=== PATIENT | female | born 1965 | race African-American/Black ===

== ENCOUNTER 2016-08-28 12:04 | Emergency (ER) | payer OTHER ==
[~2016-08-28] VITALS: Ht 172.7 cm; Wt 84.8 kg
[~2016-08-28 12:04] MED LIST: BACTRIM DS TAB1 EACH PO; LEVSIN0.125 M1 PO; METFORMIN HCL1000 M1 PO; PYRIDIUM200 M1 PO; ZOFRAN ODT4 M1 SL
--- NOTE | 2016-08-28 12:43 | ED CARDIAC/CP/PALPITATIONS ---
History of Present Illness General Chief Complaint: Upper Respiratory Sx/Fever Stated Complaint: URI Source: patient Exam Limitations: no limitations Vital Signs & Intake/Output Vital Signs & Intake/Output Vital Signs Date Time Temp Pulse Resp B/P Pulse O2 O2 Flow FiO2 Ox Delivery Rate 08/28 1429 98.9 57 20 157/89 99 Room Air 08/28 1353 98 Room Air ED Intake and Output 08/29 0000 08/28 1200 Intake Total 1000 Output Total Balance 1000 Intake, IV 1000 Patient 187 lb Weight Allergies Coded Allergies: No Known Allergies (08/28/16) Reconcile Medications Azithromycin 250 MG TABLET 1 DP PO AD SINUSITIS 2 the first day followed by 1 for days 2-5 Hyoscyamine (Levsin) 0.125 MG TABLET 1 TAB PO Q4 ABDOMINAL SPASMS Linagliptin (Tradjenta) 5 MG TABLET 1 TAB PO DAILY DIABETES (Reported) Metformin HCl 1,000 MG TABLET 1 TAB PO DAILY DIABETES (Reported) Ondansetron (Zofran Odt) 4 MG TAB.RAPDIS 1-2 TAB SL BID PRN NAUSEA Ondansetron (Zofran Odt) 4 MG TAB.RAPDIS 1 TAB SL TID PRN NAUSEA Triage Note: TRIAGE: PT TO ER C/C "I HAVE A DRY MOUTH. MY HEAD IS CLOGGED UP. I FEEL JITTERY AND I HAVE PAIN". ALSO STATES COUGHING UP THICK GREENISH MUCOUS. WHEN ASKED WHERE HER PAIN IS POINTS TO RLQ ABD AND SAYS "MY HEART" AND "MY WHOLE BODY". EKG ORDERED FROM TRIAGE. Triage Nurses Notes Reviewed? yes HPI: This patient is a 51-year-old female with a past medical history including diabetes who presented to the emergency department today for evaluation of multiple complaints. The patient reported that her symptoms began approximately 2 days ago with right lower abdominal pain. She reported that on Tuesday pain moved over to her left lower abdomen. She reported that the pain in her left lower abdomen is now gone, but she is still having 5 out of 10 pain in her right lower abdomen and has also been having worsening left-sided chest pain since 2 days ago. The patient reported that the chest pain gets up to a 7 out of 10 and is located under her left breast and sometimes radiates to her back. She reported that she has baseline pain and tingling in her hands and arms due to neuropathy from diabetes. The patient also reported that she has been having green nasal drainage at which she sometimes coughs up. The patient reported tactile fevers. She denied any chills, visual changes, jaw pain, headaches, difficulty breathing, vomiting, constipation, diarrhea, or any urinary symptoms. The patient did report mild associated nausea. She reported that she was seen here in the emergency department within the last year for similar chest pain. 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 They told her that her, "heart beats slowly and to take it easy." Past History Travel History Traveled to [place] past 21 day No Medical History Any Pertinent Medical History? 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 No Review of Systems Review of Systems Constitutional: Reports: see HPI. EENTM: Reports: see HPI. Respiratory: Reports: see HPI. Cardiovascular: Reports: see HPI. GI: Reports: see HPI. Genitourinary: Reports: no symptoms. Musculoskeletal: Reports: no symptoms. Skin: Reports: no symptoms. Neurological/Psychological: Reports: see HPI. All Other Systems: Reviewed and Negative Physical Exam Physical Exam Cardiovascular: regular rate/rhythm, normal peripheral pulses, NO MURMURS, RUBS, OR GALLOPS. nO jvd. nO CAROTID BRUITS Comments: Well-developed well-nourished person who appears anxious HEENT: Normal EENT exam, head normocephalic, moist mucous membranes PERRLA bilaterally Neck: Supple, no lymphadenopathy Back: Normal gait. Normal inspection Respiratory: Chest nontender. No respiratory distress. Speaking in full sentences. Lungs clear to auscultation bilaterally with no wheezes, rales, or rhonchi. No diminished breath sounds Abdomen: Soft and nondistended. Normoactive bowel sounds. Tympanic to percussion throughout all 4 quadrants. No tenderness to superficial or deep palpation. No McBurney's point tenderness. Negative Rovsing sign. Negative psoas sign. Negative Alonso sign. No rebound or guarding. No peritoneal signs. No organomegaly appreciated Extremity: No edema, no calf tenderness to palpation, normal and equal pulses. Neuro: Alert oriented x3, cranial nerves II through XII grossly intact. Skin: No appreciable rash on exposed skin, skin is warm and dry. Psych: Mood and affect is normal Core Measures ACS in differential dx? Yes Severe Sepsis Present: No Septic Shock Present: No Progress Differential Diagnosis: AMI, aortic dissection, atrial fibrillation, cholecystitis, CHF/pulm edema, costochondritis, hyperkalemia, hyperthyroid, hyperventilation, musculoskeletal pain, myocarditis, pancreatitis, pericarditis, pneumonia, PSVT, pulmonary embolism, PUD/GERD, PVCs/PACs, sepsis, unstable angina, INFLUENZA, RHINITIS, VIRAL SYNDROME, GASTROENTERITIS Plan of Care: Orders Procedure Date/time Status HIGH SENSITIVITY CRP 08/28 1255 Complete Laboratory Tests 08/28/16 1330: Urine Color YEL, Urine Clarity CLEAR, Urine pH 6.0, Ur Specific [place] 1.025, Urine Protein NEG, Urine Ketones NEG, Urine Nitrite NEG, Urine Bilirubin NEG, Urine Urobilinogen 0.2, Ur Leukocyte Esterase NEG, Ur Microscopic SEDIMENT EXAMINED, Urine RBC RARE, Urine WBC 1-3 H, Ur Epithelial Cells MANY H, Urine Mucus MOD H, Urine Hemoglobin TRACE-LYSED, Urine Glucose NEG, Urine Test NEGATIVE Diagnostic Imaging: Viewed by Me: Radiology Read. Discussed w/RAD: Radiology Read. CXR Impression: PATIENT: ROZINA JAIN PRESENT AGE: 51 PATIENT ACCOUNT NO: [id number] : 63 LOCATION: [facility] ORDERING PHYSICIAN: EVAN MURRELL PA-C SERVICE DATE: 08/28/16 EXAM TYPE: RAD - XRY-CHEST XRAY, PA AND LATERAL EXAMINATION: XR CHEST CLINICAL INFORMATION: Cough. Evaluate for pneumonia. COMPARISON: None. TECHNIQUE: PA and lateral views of the chest were obtained. FINDINGS: Lungs are well expanded and clear. The trachea is midline in position. The cardiac silhouette is normal in size. The mediastinal and hilar contours are normal. There is no pleural effusion. No acute skeletal findings. IMPRESSION: No evidence of pneumonia; no acute cardiopulmonary abnormalities. DICTATED BY: JES MANCILLA MD DATE/TIME DICTATED:08/28/161423 FASHION BUYER:[email or web address] DATE/TIME TRANSCRIBED: / 1423 CONFIDENTIAL, DO NOT COPY WITHOUT APPROPRIATE AUTHORIZATION. < Electronically signed in Other Vendor System> SIGNED BY: JES MANCILLA MD 08/28/16 Initial ED EKG: normal axis, normal intervals, normal sinus rhythm, no ST T wave changes, 61 BPM Comments: 08/28/2016 1:10:17 PM: Patient is now denying any chest pain at all. She reported no chest pain with cough, deep breath, or at all. She is also refusing influenza swab. 08/28/2016 2:43:49 PM: I was at the patient's bedside to update her on her imaging and laboratory studies. Upon entering the room, the patient was resting comfortably on the stretcher, in no acute distress, and nontoxic appearing. She reported that she is having body aches. She is now denying any abdominal pain or chest pain. No acute pulmonary process based on chest x-ray. No increase in white blood cell count. Troponin not elevated. No evidence of urinary tract infection based on urinalysis. The patient is now saying that her primary complaints are facial pressure, nasal drainage, and cough. Likely sinusitis. I discussed with this patient the option to get a CT scan of the abdomen and pelvis to rule out any intra-abdominal process as she reported initially saying she was having abdominal pain. CRP not elevated. The patient is refusing CT scan at this time. She is requesting to be with an antibiotic. Counseled the patient on returning to the emergency department for any worsening symptoms or concerns. Departure Departure Disposition: HOME OR SELF CARE Condition: Stable Clinical Impression Primary Impression: Sinusitis Qualifiers: Sinusitis location: unspecified location Chronicity: unspecified Qualified Code: J32.9 - Chronic sinusitis, unspecified Referrals: JANEEN FRAZIER,ASHWINI Mendoza (PCP/Family) Additional Instructions: Take antibiotic as prescribed and for its full duration. Take Zofran as prescribed for nausea. You may take [id number] Mucinex for nasal congestion. Please follow-up with your primary care physician. Return to the emergency department for any worsening symptoms or concerns. Departure Forms: Customer Survey General Discharge Information Prescriptions: Current Visit Scripts Azithromycin 1 DP PO AD #6 TAB 2 the first day followed by 1 for days 2-5 Ondansetron (Zofran Odt) 1 TAB SL TID PRN NAUSEA #10 TAB Critical Care Note Critical Care Note Critical Care Time: non-applicable Additional Instructions: Take antibiotic as prescribed and for its full duration. Take Zofran as prescribed for nausea. You may take [id number] Mucinex for nasal congestion. Please follow-up with your primary care physician. Return to the emergency department for any worsening symptoms or concerns. Departure Forms: Customer Survey General Discharge Information Prescriptions: Current Visit Scripts Azithromycin 1 DP PO AD #6 TAB 2 the first day followed by 1 for days 2-5 Ondansetron (Zofran Odt) 1 TAB SL TID PRN NAUSEA #10 TAB Critical Care Note Critical Care Note Critical Care Time: non-applicable
[2016-08-28 13:31] LABS: ABSOLUTE BASOPHIL COUNT 0 /CUMM (0.0-0.2); ABSOLUTE EOSINOPHIL COUNT 0.1 /CUMM (0.0-0.7); ABSOLUTE GRANULOCYTE CT 4.5 /CUMM (1.4-6.5); ABSOLUTE LYMPH COUNT 0.7 /CUMM (1.2-3.4); ABSOLUTE MONOCYTE COUNT 0.4 /CUMM (0.10-0.60); BASOPHIL % 0.1 % (0.0-2.0); GRANULOCYTE % 79.1 % (42.2-75.2); HEMATOCRIT 44.6 % (37-47); MEAN CORPUSCULAR HGB 28.2 PG (27.0-31.0); MEAN CORPUSCULAR HGB CONC 32.7 G/DL (33.0-37.0); MEAN CORPUSCULAR VOLUME 86.4 FL (81.0-99.0); MEAN PLATELET VOLUME 8.9 FL (7.4-10.4); PLATELET COUNT 230 /CUMM (130-400); RBC DISTRIBUTION WIDTH 13.6 % (11.5-14.5); RED BLOOD CELL CT 5.16 /CUMM (4.20-5.40); WHITE BLOOD CELL COUNT 5.7 /CUMM (4.8-10.8)
[2016-08-28 14:29] VITALS: BP 157/89
--- NOTE | 2016-08-28 14:29 | RADIOLOGY REPORT ---
EXAMINATION: XR CHEST CLINICAL INFORMATION: Cough. Evaluate for pneumonia. COMPARISON: None. TECHNIQUE: PA and lateral views of the chest were obtained. FINDINGS: Lungs are well expanded and clear. The trachea is midline in position. The cardiac silhouette is normal in size. The mediastinal and hilar contours are normal. There is no pleural effusion. No acute skeletal findings. IMPRESSION: No evidence of pneumonia; no acute cardiopulmonary abnormalities.
[2016-08-28] MEDS ORDERED: TRADJENTA5 M1 PO (14:35)
[2016-08-28] MEDS ORDERED: AZITHROMYCIN250 M1 PO (14:46)
[2016-08-28] MEDS ORDERED: ZOFRAN ODT4 M1 SL (14:46)
== END 2016-08-28 14:58 ==
LOC: ERH 12:04
PROVIDERS: Physician Assistant
DX: J32.9 Chronic sinusitis, unspecified (principal); F19.20 Other psychoactive substance dependence, uncomplicated
CPT/HCPCS: 81001; 81025; 87804; 87804-59; 93005; 93010; 96360